=== PATIENT | female | born 1995 | race Caucasian/White ===

== ENCOUNTER 2016-09-06 23:57 | Emergency (ER) | payer OTHER ==
--- NOTE | ~2016-09-06 | ER ---
PATIENT'S NAME: ROMAN GARDNER [facility] AGE: 21 Y [address] ROOM: [place] [id number] LOCATION: [facility] ADMIT DATE: 09/06/2016 ER/Outpatient Report DISCHARGE DATE: 09/07/2016 FAMILY PHYSICIAN: PHYSICIAN, NO ATTENDING PHYSICIAN: [address] Admission date and time documented in the medical record. I saw the patient at 2405 hours. CHIEF COMPLAINT: Low back pain. HISTORY OF PRESENT ILLNESS: This patient is a 21-year-old female, who this morning picked up her roommate's child, and her back popped. She had to force herself to straighten completely up. She has had pain in the mid low back ever since. She has occasional pain down the right leg but not much. She has chronic back problems and chronic pain by history. No bowel or bladder problems. HOME MEDICATIONS: None. ALLERGIES: NONE. SOCIAL HISTORY: The patient smokes half pack of cigarettes per day. Nondrinker. PAST MEDICAL HISTORY: Negative except for tobacco abuse. OPERATIONS: Tonsillectomy, cholecystectomy, wisdom teeth extraction. REVIEW OF SYSTEMS: All systems reviewed by me are negative with the exception of those discussed in the history of present illness. PHYSICAL EXAMINATION: VITAL SIGNS: Temperature 97.7 tympanic, pulse 91, respirations 16, blood pressure 139/41, O2 saturation on room air is 99%. SPINE: On examination, the patient has restricted flexion, extension, abduction, rotation of her lumbar spine. Tender over the whole lumbar spine and paraspinal muscles. NEUROVASCULAR: Intact. No tenderness over the sciatica notch in the buttock PATIENT'S NAME: ROMNA GARDNER [facility] AGE: 21 Y [address] ROOM: [place], [place] [address] LOCATION: [facility] ADMIT DATE: 09/06/2016 ER/Outpatient Report DISCHARGE DATE: 09/07/2016 FAMILY PHYSICIAN: PHYSICIAN, NO ATTENDING PHYSICIAN: [address] area. No sciatica. Again, neurovascularly intact. IMPRESSION: Low back pain with paraspinal muscle spasms. PLAN: The patient dismissed home. Observation. Activity as tolerated. Ice, heat, or combination to sore areas intermittently as needed. Flexeril 10 mg 3 times a day, #30; Naprosyn 500 mg 2 times a day with food, #20; Marmaduke 7.5/325 as needed for pain, #16. Physical therapy as needed. Return to see personal physician as needed. May need to have an MRI scan in 14 days if no improvement. Discussion ensued with the patient concerning my findings and recommendations, she understands. MD JULIO LEAVITT/modl /[id number] d: 09/07/16300 t: 09/07/161809, OUTPATIENT REPORT
== END 2016-09-07 00:39 | disposition disaster alternative care site (69) ==
LOC: GACC 23:57
DX: M62.838 Other muscle spasm (principal); F17.210 Nicotine dependence, cigarettes, uncomplicated; Z90.49 Acquired absence of other specified parts of digestive tract; Z90.89 Acquired absence of other organs; Z98.890 Other specified postprocedural states